=== PATIENT | female | born 1995 | race Caucasian/White ===

== ENCOUNTER 2019-10-03 16:54 | Emergency (ER) | payer MEDICAID ==
[~2019-10-03] VITALS: Ht 149.9 cm; Wt 47.0 kg
[~2019-10-03 16:54] MED LIST: MUPI15CR TP; ZOF4T PO
[2019-10-03 17:15] VITALS: BP 100/81
[2019-10-03] MEDS ORDERED: dexamethasone 4mg/ml inj IM ONE (17:40)
[2019-10-03] MEDS ORDERED: PRED10TA PO (17:40)
[2019-10-03] MEDS ORDERED: KEN0.1O TP (17:44)
== END 2019-10-03 17:59 | disposition home or self-care (01) ==
LOC: ER 16:54
DX: L23.7 Allergic contact dermatitis due to plants, except food (principal); Z79.2 Long term (current) use of antibiotics
CPT/HCPCS: 99283

== ENCOUNTER 2022-08-25 05:35 | Emergency (ER) | payer MEDICAID ==
[~2022-08-25] VITALS: Ht 149.9 cm; Wt 56.6 kg
[2022-08-25 05:56] VITALS: BP 112/55
[2022-08-25] MEDS ORDERED: cephalexin 500mg capsule PO ONE (06:45)
[2022-08-25] MEDS ORDERED: PRED20TA PO (06:48)
[2022-08-25] MEDS ORDERED: MUPI22OI30 TOP (06:48)
[2022-08-25] MEDS ORDERED: CEPH-585 PO (06:48)
[2022-08-25] MEDS ORDERED: predniSONE 20 mg tablet PO ONE (07:05)
[2022-08-25] MEDS ORDERED: prednisone 10mg tablet PO SCH (08:30)
== END 2022-08-25 07:34 | disposition home or self-care (01) ==
LOC: ER 05:35
DX: T24.201A Burn of second degree of unspecified site of right lower limb, except ankle and foot, initial encounter (principal); L23.7 Allergic contact dermatitis due to plants, except food; X08.8XXA Exposure to other specified smoke, fire and flames, initial encounter; Y93.89 Activity, other specified; Y92.89 Other specified places as the place of occurrence of the external cause; Y99.8 Other external cause status
CPT/HCPCS: 99284; J7512